=== PATIENT | female | born 1960 | race African-American/Black ===

== ENCOUNTER 2019-06-10 09:09 | Outpatient (CLI) | payer MEDICARE, SELFPAY ==
--- NOTE | 2019-06-10 11:00 | NEURO_ITS ---
Patient Number: [id number] Impression: # Complains of lower extremity pain particularly around upper calf and knee. # Normal nerve conduction study including motor, sensory and F-waves. # Normal needle/EMG exam. # Clinical correlation recommended. Nerve Conduction Studies Anti Sensory Summary Table Stim Site NR Peak (ms) P-T Amp (?V) Site1 Site2 Delta-P (ms) Dist (cm) Cristopher (m/s) Left Sup Fibular Anti Sensory (Ant Lat Mall) 14 cm 3.9 27.1 14 cm Ant Lat Mall 3.9 16.0 41 Right Sup Fibular Anti Sensory (Ant Lat Mall) 14 cm 3.7 31.3 14 cm Ant Lat Mall 3.7 16.0 43 Left Sural Anti Sensory (Lat Mall) Calf 4.4 14.8 Calf Lat Mall 4.4 16.0 36 Right Sural Anti Sensory (Lat Mall) Calf 4.0 15.9 Calf Lat Mall 4.0 16.0 40 Motor Summary Table Stim Site NR Onset (ms) O-P Amp (mV) Site1 Site2 Delta-0 (ms) Dist (cm) Cristopher (m/s) Left Peroneal Motor (Vastus Med) Ankle 4.8 2.4 Popit Ankle 7.5 37.0 49 Popit 12.3 2.2 Right Peroneal Motor (Vastus Med) Ankle 4.5 5.8 Popit Ankle 7.4 35.0 47 Popit 11.9 4.9 Left Tibial Motor (Abd Reyes Brev) Ankle 5.0 2.6 Knee Ankle 9.2 41.0 45 Knee 14.2 1.1 Right Tibial Motor (Abd Reyes Brev) Ankle 4.3 5.7 Knee Ankle 9.1 40.0 44 Knee 13.4 4.0 F Wave Studies NR F-Lat (ms) L-R F-Lat (ms) Left Peroneal (Mrkrs) (EDB) 54.48 0.85 Right Peroneal (Mrkrs) (EDB) 55.32 0.85 Left Tibial (Mrkrs) (Abd Hallucis) 54.90 0.10 Right Tibial (Mrkrs) (Abd Hallucis) 55.00 0.10 EMG Side Muscle Nerve Root Ins Act Fibs Amp Dur Recrt Comment Right AntTibialis Dp Br Fibular L4-5 Nml Nml Nml Nml Nml Right Gastroc Tibial S1-2 Nml Nml Nml Nml Nml Right Fibularis Long Sup Br Fibular L5-S1 Nml Nml Nml Nml Nml Right Flex Dig Long Tibial L5-S2 Nml Nml Nml Nml Nml Right Ext Dig Brev Dp Br Fibular L5, S1 Nml Nml Nml Nml Nml Left AntTibialis Dp Br Fibular L4-5 Nml Nml Nml Nml Nml Left Gastroc Tibial S1-2 Nml Nml Nml Nml Nml Left Fibularis Long Sup Br Fibular L5-S1 Nml Nml Nml Nml Nml Left Flex Dig Long Tibial L5-S2 Nml Nml Nml Nml Nml Left Ext Dig Brev Dp Br Fibular L5, S1 Nml Nml Nml Nml Nml MTDD
== END 2019-06-10 09:10 | disposition home or self-care (01) ==
PROVIDERS: PCP Internal Medicine; Visit Provider Internal Medicine
DX: M79.662 Pain in left lower leg (principal); M79.661 Pain in right lower leg
CPT/HCPCS: 95886; 95910